=== PATIENT | female | born 1965 | race Caucasian/White ===

== ENCOUNTER → 2019-04-14 | Outpatient (CLI) | payer OTHER ==
[2019-04-14 07:40] LABS: BASOPHILS # (AUTO) 0.02 x10^3/uL (0-0.1); BASOPHILS % (AUTO) 0 % (0-1); EOSINOPHILS # (AUTO) 0.12 x10^3/uL (0-0.4); EOSINOPHILS % (AUTO) 2 % (1-7); LYMPHOCYTES # (AUTO) 1.79 x10^3/uL (1-3.4); LYMPHOCYTES % (AUTO) 32 % (22-44); MD NO; MEAN CORPUSCULAR HEMOGLOBIN 30.5 pg (27.0-34.8); MEAN CORPUSCULAR HGB CONC 33.2 g/dL (32.4-35.8); MEAN CORPUSCULAR VOLUME 91.9 fL (80-100); MEAN PLATELET VOLUME 7.5 fL (7.4-10.4); MONOCYTES # (AUTO) 0.48 x10^3/uL (0.2-0.8); MONOCYTES % (AUTO) 9 % (2-9); NEUTROPHILS # (AUTO) 3.16 x10^3/uL (1.8-6.8); NEUTROPHILS % (AUTO) 57 % (42-75); PLATELET COUNT 227 x10^3/uL (130-400); RED BLOOD COUNT 5.01 x10^6/uL (3.82-5.3); RED CELL DISTRIBUTION WIDTH 13.7 % (9.6-15.2)
[2019-04-14 07:47] LABS: MICROSCOPIC NOT IND
[2019-04-14 07:52] LABS: ALANINE AMINOTRANSFERASE 52 U/L (12-78); ALBUMIN 3.6 g/dL (3.4-5.0); CALCIUM 8.3 mg/dL (8.5-10.1); CHLORIDE 106 mmol/L (98-107); CREATININE 0.63 mg/dL (0.55-1.02)
[2019-04-14 07:55] LABS: ALKALINE PHOSPHATASE 133 U/L (45-117); BILIRUBIN,TOTAL 0.3 mg/dL (0.2-1.0); CHOL/HDL RATIO 4.4; CHOLESTEROL, TOTAL 194 mg/dL (140-239); HDL CHOL % 23 % (28-40); HDL CHOLESTEROL (DIRECT) 44 mg/dL (40-60); LDL CHOLESTEROL,CALCULATED 110 mg/dL (54-169); LDL/HDL RATIO 2.5 (0.5-3.0); TOTAL PROTEIN 7.4 g/dL (6.4-8.2); TRIGLYCERIDES 199 mg/dL (50-200); VLDL CHOLESTEROL 40 mg/dL (0-25)
[2019-04-14 08:03] LABS: ANION GAP 3 mmol/L (5-15)
== END | disposition home or self-care (01) ==
LOC: LAB 07:21
PROVIDERS: ATTEND Family Medicine
DX: Z00.00 Encounter for general adult medical examination without abnormal findings (principal)
CPT/HCPCS: 36415; 80053; 80061; 81003; 85025

== ENCOUNTER 2020-05-29 20:33 | Emergency (ER) | payer OTHER ==
[~2020-05-29] VITALS: Ht 157.5 cm; Wt 72.0 kg
[2020-05-29 20:35] VITALS: BP 151/87
--- NOTE | 2020-05-29 22:43 | NUR ---
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 Risks explained and documents signed.
[2020-05-29] MEDS ORDERED: IBUPROFEN 600 MG TABLET ONE (22:51)
--- NOTE | 2020-05-29 22:59 | NUR ---
Medicated patient per aug. D/c instructions given. All questions and concerns addressed. Patient wheeled out in a wheelchair. Belongings with patient.
[2020-05-29] MEDS ORDERED: IBUPROFEN 200 MG TABLET PO ONE (23:00)
[2020-05-29] MEDS ORDERED: IBUPROFEN 600 MG TABLET PO ONE (23:00)
== END 2020-05-29 23:04 | disposition left against medical advice (07) ==
LOC: ED 21:03
DX: S93.401A Sprain of unspecified ligament of right ankle, initial encounter (principal); W01.0XXA Fall on same level from slipping, tripping and stumbling without subsequent striking against object, initial encounter; Y93.89 Activity, other specified; Y92.009 Unspecified place in unspecified non-institutional (private) residence as the place of occurrence of the external cause; Y99.8 Other external cause status
CPT/HCPCS: 99283

== ENCOUNTER → 2020-08-03 | Outpatient (CLI) | payer OTHER | END | disposition home or self-care (01) | LOC: CFH 07:42 | PROVIDERS: ATTEND Family Medicine | DX: Z12.31 Encounter for screening mammogram for malignant neoplasm of breast (principal) | CPT/HCPCS: 77063; 77067 ==

== ENCOUNTER 2020-09-15 13:54 | Emergency (ER) | payer OTHER ==
[~2020-09-15] VITALS: Ht 152.4 cm; Wt 73.3 kg
--- NOTE | 2020-09-15 14:21 | NUR ---
first contact with pt. pt c/o dzy x 2 days. pt denies glf/trauma/leon. pt's aox4. resps even and unlabored. all monitors in place. call light within reach. sensation intact. speech clear. pa at bedside for evaluation at this time.
[2020-09-15] MEDS ORDERED: MECLIZINE CHEWABLE 25 MG TAB ONE (14:25)
[2020-09-15] MEDS ORDERED: CARBAMIDE PEROXIDE EAR DROPS 6.5%, 15ML ONE (14:25)
[2020-09-15] MEDS ORDERED: MECLIZINE CHEWABLE 25 MG TAB PO ONE (14:30)
[2020-09-15] MEDS ORDERED: CARBAMIDE PEROXIDE EAR DROPS 6.5%, 15ML RIGHT EAR ONE (14:30)
--- NOTE | 2020-09-15 14:31 | NUR ---
PT MEDICATED PER EMAR. PT TOLERATED WELL.
[2020-09-15 14:51] LABS: BASOPHILS % (AUTO) 0 % (0-1); EOSINOPHILS % (AUTO) 1 % (1-7); LYMPHOCYTES % (AUTO) 32 % (22-44); MEAN CORPUSCULAR HEMOGLOBIN 31.2 pg (27.0-34.8); MEAN PLATELET VOLUME 8.2 fL (7.4-10.4); MONOCYTES % (AUTO) 8 % (2-9); NEUTROPHILS % (AUTO) 59 % (42-75); PLATELET COUNT 235 x10^3/uL (130-400); RED BLOOD COUNT 5.01 x10^6/uL (3.82-5.3); RED CELL DISTRIBUTION WIDTH 13.7 % (9.6-15.2)
[2020-09-15 14:54] LABS: MD NO
--- NOTE | 2020-09-15 14:54 | NUR ---
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 neuro intact. debrox admin by primary RN, awaiting irrigation and dispo.
--- NOTE | 2020-09-15 15:13 | NUR ---
ear irrigation done at bedside by emt at this time.
[2020-09-15 15:14] LABS: ALANINE AMINOTRANSFERASE 31 U/L (12-78); ALBUMIN 3.7 g/dL (3.4-5.0); ANION GAP 2 mmol/L (5-15); CALCIUM 9.1 mg/dL (8.5-10.1); CHLORIDE 110 mmol/L (98-107); CREATININE 0.76 mg/dL (0.55-1.02)
[2020-09-15 15:16] LABS: ALKALINE PHOSPHATASE 131 U/L (45-117); BILIRUBIN,TOTAL 0.3 mg/dL (0.2-1.0); TOTAL PROTEIN 7.6 g/dL (6.4-8.2)
--- NOTE | 2020-09-15 15:22 | NUR ---
THIS TECH IRRIGATED THE RIGHT EAR. BALL OF WAX WAS REMOVED. EAR LOOKS CLEAR
[2020-09-15 16:00] VITALS: BP 134/86
--- NOTE | 2020-09-15 16:01 | NUR ---
Patient given discharge instructions and they have confirmed that they understand the instructions.
== END 2020-09-15 16:03 | disposition home or self-care (01) ==
LOC: ED 15:55
DX: H66.001 Acute suppurative otitis media without spontaneous rupture of ear drum, right ear (principal); H81.399 Other peripheral vertigo, unspecified ear; H61.21 Impacted cerumen, right ear; R00.0 Tachycardia, unspecified
CPT/HCPCS: 36415; 69209; 80053; 85025; 93005; 99283